=== PATIENT | female | born 1955 | race Caucasian/White ===

== ENCOUNTER 2017-12-20 04:13 | Observation (INO) ==
[2017-12-20 04:34] LABS: Microscopic, Urine URINE MICROSCOPIC (MICROSCOPIC)
[2017-12-20 04:36] LABS: Appearance,Urine CLEAR (Clear); Bilirubin,Urine Negative (Negative); Blood, Urine Negative (Negative); Color,Urine YELLOW (Yellow); Glucose,Urine (UA) Negative (Negative); Ketones,Urine Negative (Negative); Leukocyte Esterase,Urine TRACE (Negative); PH,Urine 6.5 (5.0-8.5); Protein,Urine Negative (Negative); Urobilinogen,Urine 0.2 EU/dl (0.2)
[2017-12-20 04:40] LABS: Basophils # 0.1 K/mm3 (0-0.2); Basophils % 0.7 % (0.1-2.0); Eosinophils # 0.2 K/mm3 (0.0-0.4); Eosinophils % 1.7 % (0.1-12.0); Hematocrit 44.1 % (37.0-47.0); Hemoglobin 13.6 g/dL (12.2-16.2); Lymphocytes # 6.3 K/mm3 (0.7-4.5); Lymphocytes % 56.1 K/mm3 (10-50); Mean Corpuscular HGB Conc 30.8 g/dL (31.8-35.4); Mean Corpuscular Hemoglobin 29.1 pg (27.0-31.2); Mean Corpuscular Volume 94.5 fl (81-99); Mean Platelet Volume 7.7 fl (7.4-10.4); Monocytes # 0.8 K/mm3 (0.1-1.0); Monocytes % 7.3 % (1.7-9.3); Neutrophils # 3.8 K/mm3 (1.8-7.8); Neutrophils % 34.1 % (37.0-80.0); Platelet Count 392 K/mm3 (142-424); Red Blood Count 4.66 M/mm3 (4.20-5.40); Red Cell Distribution Width 13.8 % (11.5-17.5); White Blood Count 11.3 K/mm3 (4.8-10.8)
[2017-12-20 04:55] LABS: Lymphocytes % 52 % (10-50); Monocytes % 6 % (2-9); Neutrophils % 33 % (42-76); Total Cells Counted 100
[2017-12-20 04:56] LABS: Hypochromasia 1+
--- NOTE | 2017-12-20 04:58 | Emergency Department Note ---
ED Disposition Clinical Impression: Palpitations Chest pain Qualifiers: Chest pain type: unspecified Qualified Code(s): R07.9 - Chest pain, unspecified Hypothyroidism Qualifiers: Hypothyroidism type: unspecified Qualified Code(s): E03.9 - Hypothyroidism, unspecified Disposition: Admitted As Inpatient Condition on Discharge: Good Time of Disposition: 06:47 - Critical Care Critical Care Time: Yes Attestation: On 12/20/17, the high probability of a clinically significant, sudden or life threatening deterioration of the following system(s) required my full and direct attention, intervention and personal management. The time I documented below is in addition to time spent performing reported procedures but includes the following listed in this critical care notation. Total Critical Care Time: 45 Vital system(s) involved:: Circulatory Failure My critical care processes included: Assessment & monitoring of V/S, Initial and Re-exams, Data Review/Interpretation, Coordinating Care, Medication Orders and management, Documentation Medical Decision Making - Medical Records Medical records reviewed: Yes: I reviewed the patient's medical records. - [place]o Inquiry Pt receiving controlled substance: No Vital Signs: 12/20/17 04:14 12/20/17 05:39 Temperature 98.6 F Temperature Source Oral Pulse Rate [Left Radial] 64 69 Respiratory Rate 18 16 Blood Pressure [Right Arm] 140/81 117/69 Blood Pressure Mean [Right Arm] 100 85 Blood Pressure Source [Right Arm] Automatic Cuff Automatic Cuff Blood Pressure Position [Right Arm] Sitting Sitting 02 Sat by Pulse Oximetry 98 98 Oxygen Delivery Method Room Air Room Air - Lab Data Lab Results 12/20/17 04:25: Urine Color Yellow, Urine Appearance Clear, Urine pH 6.5, Ur Specific [place] 1.010, Urine Protein Negative, Urine Glucose (UA) Negative, Urine Ketones Negative, Urine Blood Negative, Urine Nitrate Negative, Urine Bilirubin Negative, Urine Urobilinogen 0.2, Ur Leukocyte Esterase Trace, Urine WBC 10-20 12/20/17 04:29: WBC 11.3 H, RBC 4.66, Hgb 13.6, Hct 44.1, MCV 94.5, MCH 29.1, MCHC 30.8 L, RDW 13.8, Plt Count 392, MPV 7.7, Neut % (Auto) 34.1 L, Lymph % ( Auto) 56.1 H, [place] % (Auto) 7.3, Eos % (Auto) 1.7, Baso % (Auto) 0.7, Neut # ( Auto) 3.8, Lymph # (Auto) 6.3 H, [place] # (Auto) 0.8, Eos # (Auto) 0.2, Baso # ( Auto) 0.1, Total Counted 100, Neutrophils % (Manual) 33 L, Band Neutrophils % 9.0 H, Lymphocytes % (Manual) 52 H, Monocytes % (Manual) 6, Platelet Estimate Normal, Hypochromasia 1+ 12/20/17 04:29: Sodium 143, Potassium 3.6, Chloride 106, Carbon Dioxide 28, Anion Gap 12.6, BUN 14, Creatinine 0.72, Estimated Creat Clear 76, Estimated GFR 82, Est GFR ( Amer) 100, Glucose 110 H, Calcium 9.3, Total Bilirubin 0.3, AST 18, ALT 23, Alkaline Phosphatase 127 H, Total Creatine Kinase 72, CK- MB (CK-2) 0.8, CK-MB (CK-2) Rel Index 1.1, Troponin I < 0.02, Total Protein 7.5 , Albumin 3.7, Globulin 3.8 H, Albumin/Globulin Ratio 1.0 L, TSH 7.68 H 12/20/17 04:29: TSH 7.71 H, Free T4 Index 2.3 L, Thyroxine (T4) 6.5, T3 Uptake 35 Result diagrams: 12/20/17 04:29 12/20/17 04:29 Orders (Tests/Meds): ED MEDICATIONS Discontinued Medications Generic Name Dose Route Start Last Admin Trade Name Freq PRN Reason Stop Dose Admin Aspirin 324 mg 12/20/17 04:35 12/20/17 04:36 Aspirin 81mg Chewable Tablet PO 12/20/17 04:36 324 mg ONCE ONE Administration ORDERS Category Date Time Status Thyroid Peroxidase Antibodies Stat Lab 12/20/17 04:29 Received Urine Culture Stat Micro 12/20/17 04:25 Received - Radiology Data #1 Image(s): Chest Image Reviewed: Yes I reviewed the patient's radiology results, Yes I reviewed the patient's radiology image Preliminary Findings: Normal/NAD - ECG Data Tracing #1 I reviewed this ECG and interpreted as documented below: PVCs, inverted T waves in V1-V2 ECG normal with no acute: arrhythmias, ischemia, conduction abnormalities, chamber hypertrophy Normal Sinus Rhythm: Yes Tracing #2 I reviewed this ECG and interpreted as documented below: heart rate 79, T wave inversion ECG normal with no acute: arrhythmias, ischemia, conduction abnormalities, chamber hypertrophy Normal Sinus Rhythm: Yes - Physician Consults Physician Consulted: Dr Hoff Time: 06:30 Reason -: Pt condition, Cardiology Eval/Care Comment/Response: Advised of patient presentation, findings, 2 EKGs obtained Additional Consult: Dr Lynn Time: 06:35 Reason -: Admission, Pt condition Comment/Response: Advise of patient's presentation, findings, consultation with Dr. Hoff, as above. - Reevaluation(s) Time: 06:30 Reevaluation #1: Patient appears medically stable, no acute distress, denying any further complaints at this time. Chest Pain HPI - General Chief Complaint: Chest Pain Stated Complaint: chest pain Time Seen by Provider: 12/20/17 04:30 Mode of Arrival: Ambulatory Source of Information: Patient Limitations: No Limitations Description of Symptoms (Recalled from ER Triage Doc. by RN): to ed per pvt car with c/o heart racing, palpatations, chest pressure, SOB, nausea starting tonight. cpta 2 nitro with some relief of chest pressure. - History of Present Illness HPI narrative: This is a 62-year-old female patient arriving to the emergency room together with her complaining with palpitations since 3 AM, associated with "chest heaviness". She denies any dyspnea, and chest pain radiation. She advised that she has insomnia (on a regular basis), and symptoms commenced while talking to her . She had an abnormal EKG a year and a half ago, and her PCP referred her to her strategic business development. She had a stress test and an echocardiogram which according to patient were normal. The strategic business development advised patient that everything was within normal. Patient is on various herbal supplements at this time. She has a history of Alan's disease but does not take any hormone supplements. Her PCP started her on nitroglycerin. She took 2 SL Ntg, with incomplete releif of her symptoms, which prompted her visit here mike. complaint: chest pain indicative of cardiac Onset (ago): hour(s) (2) Duration: intermittent Activity at onset: during rest Pain location: substernal Severity: mild Severity scale (1-10): 4 Quality: tightness Pain radiation: none Relieving factors: nitroglycerin (partial, temporary) Exacerbating factors: movement Treatments prior to or on arrival for Cardiac Chest Pain: nitroglycerin - CYNTHIA Score Non-Stemi Age of patient: Less than 65 yrs Number of risk factors for CAD: Presence of less than 3 Prior coronary artery stenosis(seen in coronary angiography): Less than 50% ST-Segment deviation on ECG (more than 1 min): Absent Prior aspirin intake: No ASA in the last 7 days Severe anginal chest pain: No or one episode in last 24 hours Elevated cardiac markers(CK-MB or troponin): Absent Non-Stemi Risk Score: 0 Risk Stratification: 0-2= Low Risk Patients - Related Data Home Medications Medication Instructions Recorded Confirmed Nitroglycerin 0.4 mg SL NEEDED PRN 12/20/17 12/20/17 Allergies Allergy/AdvReac Type Severity Reaction Status Date / Time No Known Allergies Allergy Verified 12/20/17 04:19 [facility] History I have reviewed the patient's past medical history: Yes Medical History: Denies:: Diabetes Mellitus Type 1, Diabetes Mellitus Type 2 - Social History Alcohol Intake: never - Psychiatric History Expresses thoughts of harming self/others: None Suicide Plan Description: No Plan ROS Obtained: Yes All systems reviewed & no additional complaints, Yes Systems reviewed as appropriate & no additional complaints - Cardiovascular Cardiovascular: Reports system reviewed and no additional complaints, except as docu, Reports as per HPI, Reports palpitations Physical Exam - General General appearance: alert, in no apparent distress - Head Head exam: atraumatic, normocephalic, normal inspection - Neck Neck exam: Present: normal inspection, full ROM, trachea midline. Absent: meningismus, lymphadenopathy - Chest Chest inspection: Present: normal inspection, symmetric chest wall rise. Absent : tenderness - Respiratory Respiratory exam: Present: normal lung sounds bilaterally. Absent: respiratory distress - Cardiovascular Cardiovascular exam: Present: regular rate, normal rhythm. Absent: JVD - Abdominal Exam Abdominal exam: Present: soft, normal bowel sounds. Absent: distention, tenderness, guarding - Extremities Exam Extremities exam: Present: normal inspection, full ROM, normal capillary refill. Absent: calf tenderness - Neurological Exam Neurological exam: Present: alert, oriented X3, CN II-XII intact, normal gait - Psychiatric Psychiatric exam: Present: normal affect, normal mood - Skin Skin exam: Present: warm, dry, intact, normal color
[2017-12-20 05:08] LABS: Alanine Aminotransferase 23 U/L (12-78); Albumin Level 3.7 gm/dL (3.4-5.0); Alkaline Phosphatase 127 U/L (46-116); Anion Gap 12.6 mEq/L (5-15); Aspartate Amino Transferase 18 U/L (15-37); Bilirubin,Total 0.3 mg/dL (0.2-1.0); Blood Urea Nitrogen 14 mg/dL (7-18); Calcium 9.3 mg/dL (8.5-10.1); Carbon Dioxide 28 mmol/L (21.0-32.0); Chloride 106 mmol/L (98-107); Creatine Kinase 72 U/L (26-192); Globulin 3.8 gm/dl (1.3-3.2); Glucose 110 mg/dL (74-106); Potassium 3.6 mmoL/L (3.5-5.1); Sodium 143 mmol/L (136-145); Thyroid Stimulating Hormone 7.68 uIU/ml (0.358-3.740); Total Protein,Serum 7.5 gm/dL (6.4-8.2)
[2017-12-20 07:05] LABS: Free Thyroxine Index 2.3 ug/dL (5.93-13.13); T4 (Thyroxine) 6.5 ug/dl (4.7-13.3); Thyroid Stimulating Hormone 7.71 uIU/ml (0.358-3.740)
--- NOTE | 2017-12-20 08:13 | Pharmacy Consult Notes ---
[facility] Pharmacy VTE Monitoring - Patient Demographics Admission date: 12/20/17 Report Date: 12/20/17 Time: 08:13 Allergies/Adverse Reactions: Patient Allergies No Known Allergies Allergy (Verified 12/20/17 04:19) Height: 1.63 m Weight: 81.647 kg Patient Problems: Current Active Problems Chest pain (Acute) Palpitations (Acute) Hypothyroidism (Acute) - VTE Risk Labs: VTE Related Lab Results Hgb 13.6 g/dL (12.2-16.2) 12/20/17 04:29 Hct 44.1 % (37.0-47.0) 12/20/17 04:29 Plt Count 392 K/mm3 (142-424) 12/20/17 04:29 BUN 14 mg/dL (7-18) 12/20/17 04:29 Creatinine 0.72 mg/dL (0.55-1.02) 12/20/17 04:29 Estimated Creat Clear 76 mL/min (0-300) 12/20/17 04:29 - Prophylaxis VTE Prophylaxis Ordered?: Yes Types of VTE Prophylaxis: TEDS Knee High Location of Applied Device: Bilateral Lower Extremeties - VTE Diagnosis Confirmed Treatment or plan recommended: Continue Current Treatment
--- NOTE | 2017-12-20 08:21 | History & Physical Report ---
*Admission Date: 12/20/17 *Chief complaint: chest pain *History of present illness: this wf presented to ed with chest pain- is a 62-year-old female patient arriving to the emergency room together with her complaining with palpitations since 3 AM, associated with "chest heaviness". She denies any dyspnea, and chest pain radiation. She advised that she has insomnia (on a regular basis), and symptoms commenced while talking to her . She had an abnormal EKG a year and a half ago, and her PCP referred her to her red lead burner. She had a stress test and an echocardiogram which according to patient were normal. The red lead burner advised patient that everything was within normal. Patient is on various herbal supplements at this time. She has a history of Alan's disease but does not take any hormone supplements. Her PCP started her on nitroglycerin. She took 2 SL Ntg, with incomplete releif of her symptoms, which prompted her visit here tonight. History of paroxysmal atrial tachycardia for many years 2. History of ITP, status post splenectomy many years ago A. History of recurrent pneumonia and urinary tract infections 3. Hypothyroidism 4. History of "prediabetic" since September 2016 5. 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 Non-smoker History of present illness: 62-year-old white female with history of hypothyroidism, status post splenectomy for idiopathic thrombocythemia Perper many years ago presented to the emergency department for chest pressure, chest burning sensation and hard palpitations in the chest neck and jaw. Symptoms began while lying in bed and despite 2 sublingual nitroglycerin at home without relief, symptoms continued. She denies any nausea, vomiting or diaphoresis. She has noticed some exertional fatigue and shortness of breath above her baseline over the last several days. Similar episode of discomfort and palpitations in September 2016 which prompted an echocardiogram and routine stress test which reportedly showed only mild abnormalities. Patient was referred to a red lead burner for further evaluation without need for further evaluate per the red lead burner. Patient does not take medications she uses herbs to treat any problems. She has a history of being on Lanoxin in the past for PAT but is not on that at this time. Initial cardiac enzymes normal 2. EKG 2 showed sinus rhythm and T -wave inversion in anterolateral leads with poor R-wave progression anteriorly. Repeat EKG also included PVCs. As of acute coronary syndrome. Allergy consulted for evaluation recommendations. After long discussion with the patient regarding options of no therapy versus medications versus stress test or ultimately cardiac catheterization patient adamantly declines stress testing. She is willing to proceed with echocardiogram and will consider medications and/or cardiac catheterization. [facility] History I have reviewed the patient's past medical history: Yes Medical History: Denies:: Diabetes Mellitus Type 1, Diabetes Mellitus Type 2 - *Social History Alcohol Intake: never - Psychiatric History Expresses thoughts of harming self/others: None Suicide Plan Description: No Plan Review of Systems - Review of Systems Review of systems:: pertinent systems reviewed and negative unless documented below - Constitutional Denies fever(s) - Eyes Denies change in vision - ENT Denies sinus pain - *Cardiovascular Reports chest pain, Reports rapid, pounding, or irregular heartbeat, Reports radiating jaw, neck or arm pain - *Respiratory Denies cough - *Gastrointestinal Denies abdominal pain - *Genitourinary Denies blood in urine - *Musculoskeletal Denies joint pain, Denies joint swelling - Integumentary/Breasts Denies rash - *Neurologic Denies seizure-like activity Meds Home Medications Medication Instructions Recorded Confirmed Type Nitroglycerin 0.4 mg SL Q5MINP PRN 12/20/17 12/20/17 History Allergies Allergy/AdvReac Type Severity Reaction Status Date / Time No Known Allergies Allergy Verified 12/20/17 04:19 Exam Vital signs and Labs for Last 24 Hours: Temp Pulse Resp BP Pulse Ox 98.0 F 70 20 143/82 97 12/20/17 08:17 12/20/17 08:17 12/20/17 08:17 12/20/17 08:17 12/20/17 08:17 Laboratory Results - last 24 hr 12/20/17 04:25: Urine Color Yellow, Urine Appearance Clear, Urine pH 6.5, Ur Specific [place] 1.010, Urine Protein Negative, Urine Glucose (UA) Negative, Urine Ketones Negative, Urine Blood Negative, Urine Nitrate Negative, Urine Bilirubin Negative, Urine Urobilinogen 0.2, Ur Leukocyte Esterase Trace, Urine WBC 10-20 12/20/17 04:29: WBC 11.3 H, RBC 4.66, Hgb 13.6, Hct 44.1, MCV 94.5, MCH 29.1, MCHC 30.8 L, RDW 13.8, Plt Count 392, MPV 7.7, Neut % (Auto) 34.1 L, Lymph % ( Auto) 56.1 H, Real % (Auto) 7.3, Eos % (Auto) 1.7, Baso % (Auto) 0.7, Neut # ( Auto) 3.8, Lymph # (Auto) 6.3 H, Real # (Auto) 0.8, Eos # (Auto) 0.2, Baso # ( Auto) 0.1, Total Counted 100, Neutrophils % (Manual) 33 L, Band Neutrophils % 9.0 H, Lymphocytes % (Manual) 52 H, Monocytes % (Manual) 6, Platelet Estimate Normal, Hypochromasia 1+ 12/20/17 04:29: Sodium 143, Potassium 3.6, Chloride 106, Carbon Dioxide 28, Anion Gap 12.6, BUN 14, Creatinine 0.72, Estimated Creat Clear 76, Estimated GFR 82, Est GFR ( Amer) 100, Glucose 110 H, Calcium 9.3, Total Bilirubin 0.3, AST 18, ALT 23, Alkaline Phosphatase 127 H, Total Creatine Kinase 72, CK- MB (CK-2) 0.8, CK-MB (CK-2) Rel Index 1.1, Troponin I < 0.02, Total Protein 7.5 , Albumin 3.7, Globulin 3.8 H, Albumin/Globulin Ratio 1.0 L, TSH 7.68 H 12/20/17 04:29: TSH 7.71 H, Free T4 Index 2.3 L, Thyroxine (T4) 6.5, T3 Uptake 35 12/20/17 07:20: Troponin I < 0.02 I & O for Last 24 hours: Intake & Output 12/17/17 12/18/17 12/19/17 12/20/17 11:59 11:59 11:59 11:59 Weight 180 lb - Constitutional no acute distress - *Routine HEENT Exam Head: Present: normocephalic Eye: Present: EOMI, PERRL ENT: Present: mucous membranes dry - *Routine Neck Exam Present: supple - *Routine Respiratory Exam Present: CTA bilaterally - *Routine Cardiovascular Exam Present: RRR, murmur. Absent: gallop, rubs - *Routine Abdominal Exam Present: soft - *Routine Extremities Exam Present: full ROM - *Routine Skin Exam Present: intact - *Routine Neurological Exam Present: alert, oriented X3, CN II-XII intact - Routine Psychiatric Exam Present: normal affect H&P: Result - Labs Labs: Short CBC 12/20/17 Range/Units 04:29 WBC 11.3 H (4.8-10.8) K/mm3 Hgb 13.6 (12.2-16.2) g/dL Hct 44.1 (37.0-47.0) % Plt Count 392 (142-424) K/mm3 BMP 12/20/17 04:29 Sodium 143 Potassium 3.6 Chloride 106 Carbon Dioxide 28 BUN 14 Creatinine 0.72 Glucose 110 H Calcium 9.3 Cardiac Enzymes 12/20/17 12/20/17 Range/Units 04:29 07:20 Total Creatine Kinase 72 (26-192) U/L CK-MB (CK-2) 0.8 (0.0-3.6) ng/ml Troponin I < 0.02 < 0.02 (0.00-0.06) ng/ml Liver Function 12/20/17 Range/Units 04:29 Total Bilirubin 0.3 (0.2-1.0) mg/dL AST 18 (15-37) U/L ALT 23 (12-78) U/L Alkaline Phosphatase 127 H (46-116) U/L Albumin 3.7 (3.4-5.0) gm/dL Urine 12/20/17 Range/Units 04:25 Urine Color Yellow (Yellow) Urine Appearance Clear (Clear) Urine pH 6.5 (5.0-8.5) Ur Specific [place] 1.010 (1.005-1.030) Urine Protein Negative (Negative) Urine Glucose (UA) Negative (Negative) Assessment and Plan (1) Chest pain Current visit: Yes Status: Acute Qualifiers: Chest pain type: precordial pain Qualified Code(s): R07.2 - Precordial pain Category: Medical Code(s): R07.9 - Chest pain, unspecified (2) Hypothyroidism Current visit: Yes Status: Acute Qualifiers: Hypothyroidism type: unspecified Qualified Code(s): E03.9 - Hypothyroidism , unspecified Category: Medical Code(s): E03.9 - Hypothyroidism, unspecified - Assessment and plan all Dx Assessment and Plan for all problems:: after hx and exam - feel pt is describing angina and feel pt is at risk and will benefit from card cath - pt is agreeable
[2017-12-20 08:50] LABS: Creatine Kinase 65 U/L (26-192)
--- NOTE | 2017-12-20 09:15 | Consult Report ---
History of Present Illness Consult date: 12/20/17 Requesting physician: Juanito Lynn Consult reason: chest pain Chief complaint: Chest pain, palpitations Additional Medical History:: 1. History of paroxysmal atrial tachycardia for many years 2. History of ITP, status post splenectomy many years ago A. History of recurrent pneumonia and urinary tract infections 3. Hypothyroidism 4. History of "prediabetic" since September 2016 5. 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 Non-smoker History of present illness: 62-year-old white female with history of hypothyroidism, status post splenectomy for idiopathic thrombocythemia Perper many years ago presented to the emergency department for chest pressure, chest burning sensation and hard palpitations in the chest neck and jaw. Symptoms began while lying in bed and despite 2 sublingual nitroglycerin at home without relief, symptoms continued. She denies any nausea, vomiting or diaphoresis. She has noticed some exertional fatigue and shortness of breath above her baseline over the last several days. Similar episode of discomfort and palpitations in September 2016 which prompted an echocardiogram and routine stress test which reportedly showed only mild abnormalities. Patient was referred to a elementary spanish teacher for further evaluation without need for further evaluate per the elementary spanish teacher. Patient does not take medications she uses herbs to treat any problems. She has a history of being on Lanoxin in the past for PAT but is not on that at this time. Initial cardiac enzymes normal 2. EKG 2 showed sinus rhythm and T -wave inversion in anterolateral leads with poor R-wave progression anteriorly. Repeat EKG also included PVCs. As of acute coronary syndrome. Allergy consulted for evaluation recommendations. After long discussion with the patient regarding options of no therapy versus medications versus stress test or ultimately cardiac catheterization patient adamantly declines stress testing. She is willing to proceed with echocardiogram and will consider medications and/or cardiac catheterization. [facility] History Medical History: Denies:: Diabetes Mellitus Type 1, Diabetes Mellitus Type 2 - *Social History Alcohol Intake: never - Psychiatric History Expresses thoughts of harming self/others: None Suicide Plan Description: No Plan Meds Home Medications Medication Instructions Recorded Confirmed Type Nitroglycerin 0.4 mg SL Q5MINP PRN 12/20/17 12/20/17 History Allergies Allergy/AdvReac Type Severity Reaction Status Date / Time No Known Allergies Allergy Verified 12/20/17 04:19 Review of Systems - *Cardiovascular Reports chest pain, Reports leg pain with activity, Reports rapid, pounding, or irregular heartbeat - *Respiratory Reports shortness of breath with activity - *Gastrointestinal Denies abdominal pain - *Musculoskeletal Reports joint pain, Reports joint swelling - *Neurologic Denies abnormal walking, Denies unsteadiness, Denies dizziness Exam Vital signs and Labs for Last 24 Hours: Temp Pulse Resp BP Pulse Ox 98.0 F 70 20 143/82 97 12/20/17 08:17 12/20/17 08:17 12/20/17 08:17 12/20/17 08:17 12/20/17 08:17 Laboratory Results - last 24 hr 12/20/17 04:25: Urine Color Yellow, Urine Appearance Clear, Urine pH 6.5, Ur Specific [place] 1.010, Urine Protein Negative, Urine Glucose (UA) Negative, Urine Ketones Negative, Urine Blood Negative, Urine Nitrate Negative, Urine Bilirubin Negative, Urine Urobilinogen 0.2, Ur Leukocyte Esterase Trace, Urine WBC 10-20 12/20/17 04:29: WBC 11.3 H, RBC 4.66, Hgb 13.6, Hct 44.1, MCV 94.5, MCH 29.1, MCHC 30.8 L, RDW 13.8, Plt Count 392, MPV 7.7, Neut % (Auto) 34.1 L, Lymph % ( Auto) 56.1 H, [place] % (Auto) 7.3, Eos % (Auto) 1.7, Baso % (Auto) 0.7, Neut # ( Auto) 3.8, Lymph # (Auto) 6.3 H, [place] # (Auto) 0.8, Eos # (Auto) 0.2, Baso # ( Auto) 0.1, Total Counted 100, Neutrophils % (Manual) 33 L, Band Neutrophils % 9.0 H, Lymphocytes % (Manual) 52 H, Monocytes % (Manual) 6, Platelet Estimate Normal, Hypochromasia 1+ 12/20/17 04:29: Sodium 143, Potassium 3.6, Chloride 106, Carbon Dioxide 28, Anion Gap 12.6, BUN 14, Creatinine 0.72, Estimated Creat Clear 76, Estimated GFR 82, Est GFR ( Amer) 100, Glucose 110 H, Calcium 9.3, Total Bilirubin 0.3, AST 18, ALT 23, Alkaline Phosphatase 127 H, Total Creatine Kinase 72, CK- MB (CK-2) 0.8, CK-MB (CK-2) Rel Index 1.1, Troponin I < 0.02, Total Protein 7.5 , Albumin 3.7, Globulin 3.8 H, Albumin/Globulin Ratio 1.0 L, TSH 7.68 H 12/20/17 04:29: TSH 7.71 H, Free T4 Index 2.3 L, Thyroxine (T4) 6.5, T3 Uptake 35 12/20/17 07:20: Troponin I < 0.02 12/20/17 07:20: Hemoglobin A1c 6.0 12/20/17 08:25: Total Creatine Kinase 65, CK-MB (CK-2) 0.7, CK-MB (CK-2) Rel Index 1.1, Troponin I < 0.02 I & O for Last 24 hours: Intake & Output 12/17/17 12/18/17 12/19/17 12/20/17 11:59 11:59 11:59 11:59 Weight 180 lb - *Routine Neck Exam Absent: JVD, carotid bruit - *Routine Respiratory Exam Present: CTA bilaterally - *Routine Cardiovascular Exam Present: RRR. Absent: murmur, gallop, rubs - *Routine Extremities Exam Absent: edema - *Routine Neurological Exam Present: alert, oriented X3, moving all extremities Assessment and Plan (1) Chest pain Current visit: Yes Status: Acute Qualifiers: Chest pain type: unspecified Qualified Code(s): R07.9 - Chest pain, unspecified Category: Medical Code(s): R07.9 - Chest pain, unspecified (2) Hypothyroidism Current visit: Yes Status: Acute Qualifiers: Hypothyroidism type: unspecified Qualified Code(s): E03.9 - Hypothyroidism , unspecified Category: Medical Code(s): E03.9 - Hypothyroidism, unspecified (3) Palpitations Current visit: Yes Status: Acute Category: Medical Code(s): R00.2 - Palpitations - Assessment and plan all Dx Assessment and Plan for all problems:: 1. Abnormal EKG without evidence of acute coronary syndrome and with normal troponins. Patient does not want to repeat stress test. Recommend cardiac catheterization due to risk factors including age, prediabetes and recent progressive exertional symptoms. 2. Will obtain an echocardiogram to evaluate left ventricular size and function along with valve status follow-up on the patient's history of mild valvular insufficiencies. 3. Recommend treatment of her hypothyroidism carotid ultrasound follow-up on history of thyroid nodules. 4. Recommend either Lanoxin, beta-ryan or calcium channel ryan for treatment of palpitations. Patient is not interested in this at this time and will seek herbal alternative. 5. Consider security monitor as an outpatient for follow-up on palpitations.
[2017-12-20 14:30] LABS: Creatine Kinase 58 U/L (26-192)
--- NOTE | 2017-12-21 07:34 | Progress Note ---
<Osei Torrez U - Last Filed: 12/21/17 07:30> Subjective Date: 12/21/17 Time: 07:30 Principal diagnosis: chest pain, palpitations Interval history: 62 yo WF in bed in NAD. She has decided to proceed with cardiac cath to evaluate her chest pressure/tightness. Risks, benefits and procedure explained to pt and and all questions answered. Exam Vital signs and Labs for Last 24 Hours: Temp Pulse Resp BP Pulse Ox 98.6 F 64 16 125/72 98 12/21/17 04:00 12/21/17 04:00 12/21/17 04:00 12/21/17 04:00 12/21/17 04:00 Laboratory Results - last 24 hr 12/20/17 07:20: Troponin I < 0.02 12/20/17 07:20: Hemoglobin A1c 6.0 12/20/17 08:25: Total Creatine Kinase 65, CK-MB (CK-2) 0.7, CK-MB (CK-2) Rel Index 1.1, Troponin I < 0.02 12/20/17 14:00: Total Creatine Kinase 58, CK-MB (CK-2) < 0.5 D, CK-MB (CK-2) Rel Index 0.9, Troponin I < 0.02 12/20/17 14:00: Triglycerides 61, Cholesterol 266 H, LDL Cholesterol 187 H, VLDL Cholesterol 12, HDL Cholesterol 67, Cholesterol/HDL Ratio 4.0 H I & O for Last 24 hours: Intake & Output 12/18/17 12/19/17 12/20/17 12/21/17 11:59 11:59 11:59 11:59 Intake Total 250 / 250 Balance 250 / 250 Weight 180 lb 180 lb Microbiology Reports for the Last 24 Hours: Microbiology 12/20/17 04:25 Urine,Clean Catch Urine Culture - Final Multiple organisms, suggests contamination. - *Routine Respiratory Exam Present: CTA bilaterally - *Routine Cardiovascular Exam Present: RRR Progress Note: A&P (1) Chest pain Status: Acute Current Visit: Yes (2) Hypothyroidism Status: Acute Current Visit: Yes Assessment and Plan for All Diagnoses:: Proceed with [facility] this AM. Further recommendations to follow. Echo shows normal LVEF with mild MVP with mild to mod MR and mild left atrial enlargement. <Juanito Lynn - Last Filed: 12/21/17 18:52> Exam Vital signs and Labs for Last 24 Hours: Temp Pulse Resp BP Pulse Ox 97.0 F L 68 18 94/56 97 12/21/17 15:10 12/21/17 17:55 12/21/17 17:55 12/21/17 17:55 12/21/17 17:55 Laboratory Results - last 24 hr 12/20/17 04:29: Thyroid Peroxidase Ab 18 12/20/17 14:00: Triglycerides 61, Cholesterol 266 H, LDL Cholesterol 187 H, VLDL Cholesterol 12, HDL Cholesterol 67, Cholesterol/HDL Ratio 4.0 H I & O for Last 24 hours: Intake & Output 12/19/17 12/20/17 12/21/17 12/22/17 11:59 11:59 11:59 11:59 Intake Total 250 / 250 600 / 600 Balance 250 / 250 600 / 600 Weight 180 lb 180 lb Microbiology Reports for the Last 24 Hours: Microbiology 12/20/17 04:25 Urine,Clean Catch Urine Culture - Final Multiple organisms, suggests contamination. Progress Note: A&P (1) Chest pain Status: Acute Current Visit: Yes (2) Hypothyroidism Status: Acute Current Visit: Yes
--- NOTE | 2017-12-21 08:53 | Progress Note ---
Internal Medicine - PN: Subj *Date: 12/21/17 *Time: 08:50 Interval history: doing ok with no chest pain this am with cath today Exam Vital signs and Labs for Last 24 Hours: Temp Pulse Resp BP Pulse Ox 98.3 F 61 18 133/67 100 12/21/17 07:52 12/21/17 07:52 12/21/17 07:52 12/21/17 07:52 12/21/17 08:26 Laboratory Results - last 24 hr 12/20/17 08:25: Total Creatine Kinase 65, CK-MB (CK-2) 0.7, CK-MB (CK-2) Rel Index 1.1, Troponin I < 0.02 12/20/17 14:00: Total Creatine Kinase 58, CK-MB (CK-2) < 0.5 D, CK-MB (CK-2) Rel Index 0.9, Troponin I < 0.02 12/20/17 14:00: Triglycerides 61, Cholesterol 266 H, LDL Cholesterol 187 H, VLDL Cholesterol 12, HDL Cholesterol 67, Cholesterol/HDL Ratio 4.0 H I & O for Last 24 hours: Intake & Output 12/18/17 12/19/17 12/20/17 12/21/17 11:59 11:59 11:59 11:59 Intake Total 250 / 250 Balance 250 / 250 Weight 180 lb 180 lb Microbiology Reports for the Last 24 Hours: Microbiology 12/20/17 04:25 Urine,Clean Catch Urine Culture - Final Multiple organisms, suggests contamination. - Constitutional no acute distress - *Routine HEENT Exam Head: Present: normocephalic Eye: Present: EOMI, PERRL ENT: Present: mucous membranes dry - *Routine Neck Exam Present: supple - *Routine Respiratory Exam Absent: respiratory distress - *Routine Cardiovascular Exam Present: RRR, murmur - *Routine Abdominal Exam Present: soft - *Routine Extremities Exam Present: full ROM - Routine Back/Spine/Pelvis Exam Back/Spine: Present: full ROM - *Routine Skin Exam Present: intact - *Routine Neurological Exam Present: alert, oriented X3, CN II-XII intact - Routine Psychiatric Exam Present: normal affect Assessment and Plan (1) Chest pain Current visit: Yes Status: Acute Qualifiers: Chest pain type: precordial pain Qualified Code(s): R07.2 - Precordial pain Category: Medical Code(s): R07.9 - Chest pain, unspecified (2) Hypothyroidism Current visit: Yes Status: Acute Qualifiers: Hypothyroidism type: unspecified Qualified Code(s): E03.9 - Hypothyroidism , unspecified Category: Medical Code(s): E03.9 - Hypothyroidism, unspecified
--- NOTE | 2017-12-21 18:50 | Discharge Summary ---
General - General Admission date:: 12/20/17 Discharge date: 12/21/17 HPI HPI: this wf presented to ed with chest pain- is a 62-year-old female patient arriving to the emergency room together with her complaining with palpitations since 3 AM, associated with "chest heaviness". She denies any dyspnea, and chest pain radiation. She advised that she has insomnia (on a regular basis), and symptoms commenced while talking to her . She had an abnormal EKG a year and a half ago, and her PCP referred her to her manager corporate responsibility. She had a stress test and an echocardiogram which according to patient were normal. The manager corporate responsibility advised patient that everything was within normal. Patient is on various herbal supplements at this time. She has a history of Alan's disease but does not take any hormone supplements. Her PCP started her on nitroglycerin. She took 2 SL Ntg, with incomplete releif of her symptoms, which prompted her visit here tonight. History of paroxysmal atrial tachycardia for many years 2. History of ITP, status post splenectomy many years ago A. History of recurrent pneumonia and urinary tract infections 3. Hypothyroidism 4. History of "prediabetic" since September 2016 5. 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 Non-smoker History of present illness: 62-year-old white female with history of hypothyroidism, status post splenectomy for idiopathic thrombocythemia Perper many years ago presented to the emergency department for chest pressure, chest burning sensation and hard palpitations in the chest neck and jaw. Symptoms began while lying in bed and despite 2 sublingual nitroglycerin at home without relief, symptoms continued. She denies any nausea, vomiting or diaphoresis. She has noticed some exertional fatigue and shortness of breath above her baseline over the last several days. Similar episode of discomfort and palpitations in September 2016 which prompted an echocardiogram and routine stress test which reportedly showed only mild abnormalities. Patient was referred to a manager corporate responsibility for further evaluation without need for further evaluate per the manager corporate responsibility. Patient does not take medications she uses herbs to treat any problems. She has a history of being on Lanoxin in the past for PAT but is not on that at this time. Initial cardiac enzymes normal 2. EKG 2 showed sinus rhythm and T -wave inversion in anterolateral leads with poor R-wave progression anteriorly. Repeat EKG also included PVCs. As of acute coronary syndrome. Allergy consulted for evaluation recommendations. After long discussion with the patient regarding options of no therapy versus medications versus stress test or ultimately cardiac catheterization patient adamantly declines stress testing. She is willing to proceed with echocardiogram and will consider medications and/or cardiac catheterization. Hospital Course Hospital Course: pt did well in hospital with stable labs with elevated ldl and elevated tsh but other labs ok -cho shows normal LVEF with mild MVP with mild to mod MR and mild left atrial enlargement. pt had hear cath-GIOGRAPHIC RESULTS: 1. The left main artery normal 2. The left anterior descending artery normal 3. The circumflex artery dominant normal 4. The right coronary artery nondominant normal 5. The WOOTEN ventriculogram reveals normal 65% 6. The left ventricular end-diastolic pressure 20 mmHg IMPRESSION: 1. Normal coronary arteries 2. Normal ejection fraction 3. Mildly elevated LVEDP consistent with hypertensive heart disease or diastolic dysfunction PLAN: 1. Medical management 2. Evaluation noncardiac chest pain pt will be followed as op for more eval of chest pain or arrthymia by med and card Objective Vital signs: Temp Pulse Resp BP Pulse Ox 97.0 F L 68 18 94/56 97 12/21/17 15:10 12/21/17 17:55 12/21/17 17:55 12/21/17 17:55 12/21/17 17:55 no acute distress - *Routine HEENT Exam Head: Present: normocephalic Eye: Present: EOMI, PERRL ENT: Present: mucous membranes dry - *Routine Neck Exam Present: supple - *Routine Respiratory Exam Present: CTA bilaterally - *Routine Cardiovascular Exam Present: RRR - *Routine Extremities Exam Present: full ROM - *Routine Skin Exam Present: intact - *Routine Neurological Exam Present: alert, oriented X3, CN II-XII intact - Routine Psychiatric Exam Present: normal affect Results Labs on day of discharge: Labs from last 24 hours 12/20/17 12/20/17 14:00 04:29 Triglycerides 61 Cholesterol 266 H LDL Cholesterol 187 H VLDL Cholesterol 12 HDL Cholesterol 67 Cholesterol/HDL Ratio 4.0 H Thyroid Peroxidase Ab 18 DS: Diagnosis - Discharge Diagnosis (1) Chest pain Status: Acute (2) Hypothyroidism Status: Acute (3) Hyperlipidemia Status: Acute Discharge Plan - Patient Discharge Instructions ACTIVITY: Continue current activity DIET: continue same diet, low fat, low cholesterol - Follow up Plan Disposition: Home, Self-Alf Medications: Home Medications Medication Instructions Recorded Confirmed Type Nitroglycerin 0.4 mg SL Q5MINP PRN 12/20/17 12/20/17 History Magnesium 30 mg PO NEEDED PRN 12/21/17 12/21/17 History Prescriptions/Medication Reconciliation: Continue Magnesium 30 mg PO NEEDED PRN PRN Reason: MUSCLE CRAMPS Discontinued Nitroglycerin 0.4 mg SL Q5MINP PRN PRN Reason: Chest Pain
[2017-12-21 22:54] VITALS: BP 121/68
== END 2017-12-21 21:00 | disposition home or self-care (01) ==
LOC: ER 04:13 → 2ND 04:13
PROVIDERS: ADMIT Emergency Medicine; ATTEND Emergency Medicine

== ENCOUNTER → 2018-02-09 09:55 | Outpatient (CLI) | payer OTHER, SELFPAY ==
[2018-02-09 10:31] LABS: Basophils # 0.1 K/mm3 (0-0.2); Basophils % 1.3 % (0.1-2.0); Eosinophils # 0.2 K/mm3 (0.0-0.4); Hematocrit 44.6 % (37.0-47.0); Hemoglobin 14.3 g/dL (12.2-16.2); Lymphocytes # 3.7 K/mm3 (0.7-4.5); Mean Corpuscular HGB Conc 32.1 g/dL (31.8-35.4); Mean Corpuscular Volume 93.5 fl (81-99); Mean Platelet Volume 8.3 fl (7.4-10.4); Monocytes # 0.6 K/mm3 (0.1-1.0); Monocytes % 6.9 % (1.7-9.3); Neutrophils # 3.5 K/mm3 (1.8-7.8); Neutrophils % 42.8 % (37.0-80.0); Platelet Count 346 K/mm3 (142-424); Red Blood Count 4.77 M/mm3 (4.20-5.40); Red Cell Distribution Width 13.4 % (11.5-17.5); White Blood Count 8.1 K/mm3 (4.8-10.8)
[2018-02-09 11:33] LABS: Alanine Aminotransferase 20 U/L (12-78); Albumin Level 3.9 gm/dL (3.4-5.0); Albumin/Globulin Ratio 1.2 (1.1-1.8); Alkaline Phosphatase 108 U/L (46-116); Anion Gap 11.8 mEq/L (5-15); Aspartate Amino Transferase 12 U/L (15-37); Bilirubin,Total 0.4 mg/dL (0.2-1.0); Blood Urea Nitrogen 10 mg/dL (7-18); Calcium 9.7 mg/dL (8.5-10.1); Carbon Dioxide 29 mmol/L (21.0-32.0); Chloride 109 mmol/L (98-107); Creatinine,Serum 0.63 mg/dL (0.55-1.02); Estimated Glomerular Filt Rate 96 ml/min (>60); GFR (African American) 116 ML/MIN (>60); Globulin 3.3 gm/dl (1.3-3.2); Glucose 100 mg/dL (74-106); Potassium 4.8 mmoL/L (3.5-5.1); Sodium 145 mmol/L (136-145); T4 (Thyroxine) 7.3 ug/dl (4.7-13.3); Thyroid Stimulating Hormone 5.95 uIU/ml (0.358-3.740); Total Protein,Serum 7.2 gm/dL (6.4-8.2)
[2018-02-10 09:22] LABS: Hep A Ab, IgM Negative (Negative); Hepatitis B Core Antibody IgM Negative (Negative); Hepatitis B Surface Antigen Negative (Negative)
[2018-02-11 06:38] LABS: Cytomegalovirus (CMV) Ab, IgM <30.0 AU/mL (0.0-29.9); EBV Ab VCA, IgG >600.0 U/mL (0.0-17.9); EBV Ab VCA, IgM <36.0 U/mL (0.0-35.9); Hepatitis C Antibody 0.1 s/co ratio (0.0-0.9)
[2018-02-11 14:53] LABS: Antinuclear Antibodies, IFA Negative (.)
[2018-02-16 17:11] LABS: Triiodothyronine (T3) Total 119 ng/dL (71-180)
== END ==
PROVIDERS: Visit Provider Internal Medicine
DX: R53.83 Other fatigue (principal)
CPT/HCPCS: 36415; 80053; 80074; 84436; 84443; 84479; 84480; 85025; 86038; 86617; 86644; 86645; 86664; 86665

== ENCOUNTER → 2018-03-22 15:37 | Outpatient (CLI) | payer OTHER, SELFPAY | PROVIDERS: PCP Family Medicine; Visit Provider Family Medicine | DX: I47.1 Supraventricular tachycardia (principal) | CPT/HCPCS: 93225; 93226 ==

== ENCOUNTER 2021-03-27 00:21 | Emergency (ER) | payer MEDICARE, OTHER, SELFPAY ==
[2021-03-27 00:22] VITALS: BP 140/74; PULSE 74; RESP 21; TEMP 36.4; O2SAT 99
--- NOTE | 2021-03-27 00:31 | XR_ITS ---
PROCEDURE INFORMATION: Exam: XR Right Tibia and Fibula Exam date and time: 03/27/2021 12:31 AM Age: 65 years old Clinical indication: Pain; Lower leg; Right; Patient HX: Fell in hole a few days ago TECHNIQUE: Imaging protocol: XR Right tibia and fibula. Views: 2 views. COMPARISON: No relevant prior studies available. FINDINGS: Bones/joints: Normal. Soft tissues: Normal. IMPRESSION: No acute findings.
--- NOTE | 2021-03-27 00:31 | XR_ITS ---
PROCEDURE INFORMATION: Exam: XR Pelvis Exam date and time: 03/27/2021 12:31 AM Age: 65 years old Clinical indication: Hip pain; Right hip; Patient HX: Stepped in hole 3 days ago TECHNIQUE: Imaging protocol: XR pelvis. Views: 1 or 2 view. COMPARISON: No relevant prior studies available. FINDINGS: Bones/joints: Unremarkable. No acute fracture. Soft tissues: Unremarkable. IMPRESSION: No acute findings.
--- NOTE | 2021-03-27 00:31 | XR_ITS ---
PROCEDURE INFORMATION: Exam: XR Right Femur Exam date and time: 03/27/2021 12:31 AM Age: 65 years old Clinical indication: Thigh; Right; Patient HX: Pain, stepped in hole a few days ago TECHNIQUE: Imaging protocol: XR Right femur. Views: 2 views. COMPARISON: No relevant prior studies available. FINDINGS: Bones/joints: Unremarkable. No acute fracture. Soft tissues: Unremarkable. IMPRESSION: No acute findings.
--- NOTE | 2021-03-27 00:31 | XR_ITS ---
PROCEDURE INFORMATION: Exam: XR Right Knee Exam date and time: 03/27/2021 12:31 AM Age: 65 years old Clinical indication: Pain; Knee; Right; Patient HX: Stepped in hole 3 days ago TECHNIQUE: Imaging protocol: XR Right knee. Views: 3 views. COMPARISON: No relevant prior studies available. FINDINGS: Bones/joints: Normal. Soft tissues: Normal. IMPRESSION: No acute findings.
--- NOTE | 2021-03-27 01:58 | HMH.EDLOEX ---
ED Disposition Clinical Impression: Internal knee problem Qualifiers: Laterality: right Qualified Code(s): M23.91 - Unspecified internal derangement of right knee Disposition: Home, Self-Care Condition on Discharge: Good Instructions: DI for Knee Pain Additional Instructions: ice and use meds and see pcp and ortho for follow up Prescriptions: Meloxicam [Mobic 15 mg tab] 15 mg PO DAILY #10 tab Transmission Status: Pending to [facility] #[id number] Referrals: Job Borden MD [Primary Care Provider] - Oneal Shrestha MD [Staff Physician] - - Critical Care Critical Care Time: No Attestation: On 03/27/21, the high probability of a clinically significant, sudden or life threatening deterioration of the following system(s) required my full and direct attention, intervention and personal management. The time I documented below is in addition to time spent performing reported procedures but includes the following listed in this critical care notation. Medical Decision Making - Medical Records Medical records reviewed: Yes: I reviewed the patient's medical records. - [place]o Inquiry Pt receiving controlled substance: No Vital Signs: 03/27/21 00:22 Temperature 97.5 F L Temperature Source Oral Pulse Rate [Left Radial] 74 Respiratory Rate 21 Blood Pressure [Right Arm] 140/74 Blood Pressure Mean [Right Arm] 96 Blood Pressure Source [Right Arm] Automatic Cuff Blood Pressure Position [Right Arm] Sitting 02 Sat by Pulse Oximetry 99 Oxygen Delivery Method Room Air - Lab Data Lab results reviewed: Yes: I reviewed the patient's lab results. Orders (Tests/Meds): ED MEDICATIONS Discontinued Medications Generic Name Dose Route Start Last Admin Trade Name Torie PRN Reason Stop Dose Admin Hydromorphone HCl 1 mg 03/27/21 00:36 03/27/21 00:39 Hydromorphone 2mg/Ml Syringe IV 03/27/21 00:37 1 mg ONCE ONE Administration - Radiology Data #1 Image(s): Pelvis, Femur, Knee, Tib/Fib Image Reviewed: Yes I have reviewed radiologist's interpretation Preliminary Findings: No Fracture Seen Medical Decision Narrative: no redness or warmth and no effusion but no clinical evid of dvt - has pain with rom of rt knee and dec wt bearing and ext mech Lower Extremity Injury HPI - General Chief Complaint: Extremity Injury, Lower Stated Complaint: leg pain Time Seen by Provider: 03/27/21 01:58 Mode of Arrival: EMS Source of Information: Patient, EMS, Medical Record Limitations: No Limitations Description of Symptoms (Recalled from ER Triage Doc. by RN): Pt c/o RLE pain that started 3-4 days ago after a leg injury while spreading grass in the yard. She states is has progressed to the point she is unable to bear weight on it. Extremities is not hot or red. Positive pedal pulses. No obvious deformity. Pt was given 100mcg fent and 4mg zofran in route by EMS - History of Present Illness HPI Narrative: pt with rt knee pain which pt reported as been going on for weeks - over the last few days has injured rt knee with twist/rotational injury - pt now reports pain with rom and knee extension with dec wt bearing - no hip pain and no other trauma - no swelling reported MD complaint: knee injury Onset (ago): day(s) Injury: Right: knee Type of Injury: unknown Place: home Severity: moderate Associated symptoms: unable to bear weight Other symptoms: none - Related Data Previous Rx's Medication Instructions Recorded Meloxicam [Mobic 15 mg tab] 15 mg PO DAILY #10 tab 03/27/21 Allergies Allergy/AdvReac Type Severity Reaction Status Date / Time No Known Allergies Allergy Verified 02/21/18 13:56 [facility] History - Hepatitis A Screen Drug use history?: No High risk sexual behaviors?: No History of sexually transmitted infection?: No Currently employed?: No Childcare worker?: No Do you have indoor plumbing?: Yes Do you have electricity?: Yes Attestation statement:: This mayur
[2021-03-27 02:00] VITALS: BP 146/63; PULSE 77; O2SAT 95
[2021-03-27 02:05] VITALS: BP 146/63; PULSE 83; RESP 18; TEMP 36.8; O2SAT 96
== END 2021-03-27 02:51 | disposition home or self-care (01) ==
PROVIDERS: Emergency Provider Emergency Medicine; PCP Family Medicine
DX: M23.91 Unspecified internal derangement of right knee (principal); R00.2 Palpitations
CPT/HCPCS: 29505; 72170; 73552; 73562; 73590; 96374; 99283

== ENCOUNTER → 2021-04-04 16:01 | Outpatient (CLI) | payer MEDICARE, OTHER, SELFPAY ==
--- NOTE | 2021-04-04 16:04 | MR_ITS ---
PROCEDURE: MR KNEE RT WO CON CLINICAL INDICATION: ACUTE PAIN OF RIGHT KNEE COMPARISON: CR XR KNEE RT 3V from 03/27/2021 TECHNIQUE: Routine multiplanar multi echo sequences are performed without gadolinium enhancement. FINDINGS: The cruciate ligaments and collateral ligaments appear intact. The patellar tendon appears intact. There is increased PD signal of the quadriceps tendon near the patella consistent with tendinopathy/tendinosis versus sprain or partial tear. No evidence of meniscal tear. There are mild osteoarthritic changes involving all 3 compartments. There is some irregularity and thinning of the patellar cartilage suggesting osteoarthritic change. There is a small knee joint effusion. No soft tissue masses or fluid collections. IMPRESSION: Mild osteoarthritic changes of the knee. No internal derangement. Small knee joint effusion. Increased PD signal of the distal aspect of the quadriceps tendon which may be due to tendinopathy/tendinosis versus partial tear. Dictated by: Mahesh Lei MD 04/07/2021 11:33 Mahesh Lei MD in [place] 04/07/2021 11:33
== END ==
PROVIDERS: PCP Family Medicine; Visit Provider Family Medicine
DX: M25.561 Pain in right knee (principal)
CPT/HCPCS: 73721